=== PATIENT | female | born 1970 | race Caucasian/White ===

== ENCOUNTER 2018-05-23 07:01 | Emergency (ER) | payer BC ==
[2018-05-23 07:16] VITALS: BP 121/66
--- NOTE | 2018-05-23 07:25 | UC ---
Throat Pain/Nasal Fletcher HPI - HPI Summary HPI Summary: sore throat x 1 day nasal congestion , pnd, dry cough , left ear pain no fever, no chills, no body aches - History of Current Complaint Chief Complaint: UCRespiratory Stated Complaint: SORE THROAT LEFT EAR Time Seen by Provider: 05/23/18 07:19 Hx Obtained From: Patient Hx Last Menstrual Period: 05/09/18 ?: No Onset/Duration: Gradual Onset, Lasting Days - 1, Still Present Severity: Moderate Pain Intensity: 5 Cough: Nonproductive Associated Signs & Symptoms: Positive: Nasal Discharge. Negative: FB Sensation , Drooling, Wheezing, Hoarseness, Sinus Discomfort, Fever, Vomiting, Rash - Allergies/Home Medications Allergies/Adverse Reactions: Allergies Allergy/AdvReac Type Severity Reaction Status Date / Time amoxicillin Allergy Hives Verified 05/23/18 07:17 sulfamethoxazole Allergy Hives Verified 05/23/18 07:17 [From Bactrim] trimethoprim [From Bactrim] Allergy Hives Verified 05/23/18 07:17 seafood Allergy Nausea And Uncoded 05/23/18 07:17 Vomiting Home Medications: Home Medications Mv-Min/Vit C/Glut/Lysine/Hb124 [Airborne Effervescent Tablet] 1 dose PO ONCE PRN 05/23/18 [History Confirmed 05/23/18] PMH/Surg Hx/FS Hx/Imm Hx Previously Healthy: Yes - Surgical History Surgical History: Yes Surgery Procedure, Year, and Place: T&A as child - Family History Known Family History: Positive: None Negative: Diabetes - Social History Alcohol Use: Daily Substance Use Type: None Smoking Status (MU): Current Every Day Smoker Amount Used/How Often: 3-4 cig/day Household Exposure Type: Cigarettes Review of Systems All Other Systems Reviewed And Are Negative: Yes Constitutional: Positive: Negative Skin: Positive: Negative Eyes: Positive: Negative ENT: Positive: Sore Throat, Ear Ache, Sinus Congestion Respiratory: Positive: Cough Cardiovascular: Positive: Negative Is Patient Immunocompromised?: No Physical Exam Triage Information Reviewed: Yes Appearance: Well-Appearing, No Pain Distress, Well-Nourished Vital Signs: Initial Vital Signs Temp 98.8 F 05/23/18 07:11 Pulse 80 05/23/18 07:11 Resp 18 05/23/18 07:11 BP 121/66 05/23/18 07:11 Pulse Ox 100 05/23/18 07:11 Vital Signs Reviewed: Yes Eye Exam: Normal Eyes: Positive: Conjunctiva Clear ENT: Positive: Normal ENT inspection, Hearing grossly normal, Pharyngeal erythema, Nasal congestion, TMs normal. Negative: Nasal drainage, TM bulging, TM dull, TM red, Tonsillar swelling, Tonsillar exudate Neck: Positive: Supple, Nontender, No Lymphadenopathy Respiratory: Positive: Chest non-tender, Lungs clear, Normal breath sounds Cardiovascular: Positive: RRR, No Murmur, Pulses Normal Skin Exam: Normal Throat Pain/Nasal Course/Dx - Differential Dx/Diagnosis Provider Diagnosis: Viral pharyngitis Discharge - Sign-Out/Discharge Documenting (check all that apply): Patient Departure All imaging exams completed and their final reports reviewed: No Studies - Discharge Plan Condition: Stable Disposition: HOME Patient Education Materials: Pharyngitis (ED) Referrals: No Primary Care Phys,NOPCP [Primary Care Provider] - If Needed Additional Instructions: viral pharyngitis no need for antibiotics cont. with rest, increase fluid, take Tylenol as needed for pain and fever follow up as needed - Billing Disposition and Condition Condition: STABLE Disposition: Home
== END 2018-05-23 07:36 | disposition home or self-care (01) ==
LOC: UCCORT 07:01
DX: J02.8 Acute pharyngitis due to other specified organisms (principal); R06.2 Wheezing; R50.9 Fever, unspecified; R21 Rash and other nonspecific skin eruption; F17.210 Nicotine dependence, cigarettes, uncomplicated; Z88.0 Allergy status to penicillin; Z88.2 Allergy status to sulfonamides; Z88.8 Allergy status to other drugs, medicaments and biological substances; Z91.013 Allergy to seafood
CPT/HCPCS: 87651; 99211; G0463